=== PATIENT | male | born 1965 | race Caucasian/White ===

== ENCOUNTER 2019-02-01 17:06 | Inpatient (IN) ==
--- NOTE | 2019-02-01 17:28 | Emergency Department Note ---
Disposition Clinical Impression: Suicidal ideation, Alcohol intoxication, Alcohol abuse Disposition: Still a Patient Condition: Fair Referrals: NONE,PCP [Primary Care Provider] - Forms: ED Satisfaction Letter Time of Disposition: 18:45 General Adult HPI - General Chief complaint: ED Psychiatric Symptoms Stated complaint: SI Time Seen by Provider: 02/01/19 17:15 Source: patient Mode of arrival: ambulatory Limitations: no limitations Nursing Notes Reviewed: Yes Vital Signs Reviewed: Yes - History of Present Illness HPI Narrative: Patient is a 53-year-old male that presents the emergency department with reports of suicidal ideation. Patient states that this is been an issue for him in the past however today he felt acutely suicidal and, length of rope to hang himself however he is unable to go through with it. Patient states that she was recently admitted last week for psychiatric reasons to [facility]. Patient states that he has not been having his regular psychiatric medications due to them being stolen. Patient states that he is also having hallucinations that are telling him to harm himself. Patient states that he drank about a 12 pack this morning and used methamphetamine a couple of days ago. Patient states that he is not having any other symptoms at this time. Patient states that he follows with psychiatry at [facility]. Pain Scale: 10 - Related Data Home Medications Medication Instructions Recorded Confirmed Clonidine HCl 50 mg PO BID 02/01/19 02/01/19 Quetiapine Fumarate [Seroquel] 50 mg PO HS 02/01/19 02/01/19 traZODone [TraZODone] 100 mg PO HS 02/01/19 02/01/19 Allergies Allergy/AdvReac Type Severity Reaction Status Date / Time codeine Allergy Difficulty Verified 02/01/19 17:09 Breathing All systems ED: reviewed and negative except as stated. Constitutional: Denies: fever Cardiovascular: Denies: chest pain Respiratory: Denies: dyspnea Gastrointestinal: Denies: abdominal pain Psychiatric: Reports: anxiety, depression, suicidal thoughts, auditory hallucinations, visual hallucinations Past Medical History - Past Medical History Medical history: Reports: COPD, hepatitis Psychiatric history: Reports: bipolar - Social History Smoking Status: Current every day smoker Smokeless Tobacco Status: No Alcohol use: Reports: heavy Drug use: 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, IV Drug Use, prescription drug abuse Physical Exam - General Limitations: no limitations General appearance: alert, in no apparent distress - Head Head exam: atraumatic, normocephalic - Eye Eye exam: Present: normal appearance, EOMI - Neck Neck exam: Present: normal inspection, full ROM, trachea midline - Respiratory Respiratory exam: Present: normal lung sounds bilaterally. Absent: respiratory distress, wheezes - Cardiovascular Cardiovascular exam: Present: regular rate, normal rhythm, normal heart sounds, +S1, +S2 - Abdominal Exam Abdominal exam: Present: soft, Non-Tender, normal bowel sounds - Neurological Exam Neurological exam: Present: alert, oriented X3 - Psychiatric Psychiatric exam: Present: normal affect, normal mood - Skin Skin exam: Present: warm, dry, intact Course Vital Signs Temperature 97.8 F 02/01/19 17:09 Pulse Rate 68 02/01/19 17:09 Respiratory Rate 18 02/01/19 17:09 O2 Sat by Pulse Oximetry 96 02/01/19 17:09 Temperature 97.8 F 02/01/19 17:14 Pulse Rate 68 02/01/19 17:14 Respiratory Rate 18 02/01/19 17:14 Blood Pressure 166/100 02/01/19 17:14 O2 Sat by Pulse Oximetry 96 02/01/19 17:14 Oxygen Delivery Oxygen Delivery Room Air Medical Decision Making - MDM Narrative Medical decision making narrative: Due the patient presenting to the emergency department with ports is suicidal ideation we will obtain medical clearance labs and 1A will be contacted and the patient has been deemed medically cleared. Patient's urine drug screen was positive for amphetamines. Patient has elevated alcohol level of 147. A repeat ethanol level was ordered for 2130. Patient was signed out to Dr. Moreno. Please see his documentation for further medical decision making and final disposition. - Medical Records Medical records reviewed: Yes I reviewed the patient's medical records. - Lab Data Lab results reviewed: Yes I reviewed the patient's lab results. Result diagrams: 02/01/19 17:47 02/01/19 17:47 Lab Results 02/01/19 02/01/19 02/01/19 Range/Units 17:23 17:23 17:47 WBC 7.9 (4.3-11.1) K/mcL RBC 5.11 (4.19-5.50) M/mcL Hgb 14.9 (12.9-16.9) g/dL Hct 43.9 (37.5-50.1) % MCV 85.9 (83.0-100.0) fL MCH 29.2 (28.0-33.3) pg MCHC 33.9 (31.6-35.5) g/dL RDW 14.6 H (11.5-14.5) % Plt Count 172 (140-400) K/mcL MPV 8.6 L (9.4-12.4) fL Immature Gran % 0.3 (0-4) % Seg Neutrophils % 50.7 % Lymphocytes % 34.9 % Monocytes % 8.8 % Eosinophils % 4.8 % Basophils % 0.5 % Neutrophils # 4.0 (1.6-8.9) K/mcL Lymphocytes # 2.7 (0.6-4.6) K/mcL Monocytes # 0.7 (0.0-1.3) K/mcL Eosinophils # 0.4 (0.0-0.6) K/mcL Basophils # 0.0 (0.0-0.2) K/mcL Sodium (136-145) mEq/L Potassium (3.5-5.1) mEq/L Chloride (98-107) mEq/L Carbon Dioxide (23-29) mEq/L BUN (6-20) mg/dL Creatinine (0.70-1.30) mg/dL Est GFR ( Amer) (> 60) Est GFR (Non-Af Amer) (> 60) BUN/Creatinine Ratio (6-26) Glucose (70-105) mg/dL Calculated Osmolality (280-300) Calcium (8.6-10.3) mg/dL Urine Color Yellow (Yellow) Urine Clarity Clear (Clear) Urine pH 5.5 (5.0-8.0) pH Units Ur Specific [place] 1.010 (1.010-1.025) Urine Protein Negative (Neg-Trace) mg/dL Urine Glucose (UA) Normal (Normal) mg/dL Urine Ketones Negative (Negative) mg/dL Urine Blood Negative (Negative) Urine Nitrite Negative (Negative) Urine Bilirubin Negative (Negative) Urine Urobilinogen Normal (Normal) mg/dL Ur Leukocyte Esterase Negative (Negative) Salicylates (15.0-30.0) mg/dL Urine Opiates Screen Negative (Jtpiso=499) ng/mL Acetaminophen (10-20) mcg/mL Ur Barbiturates Screen Negative (Rhipco=516) ng/mL Ur Phencyclidine Scrn Negative (Cutoff=25) ng/mL Ur Amphetamines Screen Positive H (Nxhera=9208) ng/mL U Benzodiazepines Scrn Negative (Mkouwn=018) ng/mL Urine Cocaine Screen Negative (Cutoff= 300) ng/mL U Marijuana (THC) Screen Negative (Cutoff = 50) ng/mL Ur Drug Screen Interp See Below Ethyl Alcohol (Less than 10) mg/dL 02/01/19 Range/Units 17:47 WBC (4.3-11.1) K/mcL RBC (4.19-5.50) M/mcL Hgb (12.9-16.9) g/dL Hct (37.5-50.1) % MCV (83.0-100.0) fL MCH (28.0-33.3) pg MCHC (31.6-35.5) g/dL RDW (11.5-14.5) % Plt Count (140-400) K/mcL MPV (9.4-12.4) fL Immature Gran % (0-4) % Seg Neutrophils % % Lymphocytes % % Monocytes % % Eosinophils % % Basophils % % Neutrophils # (1.6-8.9) K/mcL Lymphocytes # (0.6-4.6) K/mcL Monocytes # (0.0-1.3) K/mcL Eosinophils # (0.0-0.6) K/mcL Basophils # (0.0-0.2) K/mcL Sodium 137 (136-145) mEq/L Potassium 3.3 L (3.5-5.1) mEq/L Chloride 107 (98-107) mEq/L Carbon Dioxide 21 L (23-29) mEq/L BUN 11 (6-20) mg/dL Creatinine 0.69 L (0.70-1.30) mg/dL Est GFR ( Amer) > 60 (> 60) Est GFR (Non-Af Amer) > 60 (> 60) BUN/Creatinine Ratio 16 (6-26) Glucose 94 (70-105) mg/dL Calculated Osmolality 283 (280-300) Calcium 9.0 (8.6-10.3) mg/dL Urine Color (Yellow) Urine Clarity (Clear) Urine pH (5.0-8.0) pH Units Ur Specific [place] (1.010-1.025) Urine Protein (Neg-Trace) mg/dL Urine Glucose (UA) (Normal) mg/dL Urine Ketones (Negative) mg/dL Urine Blood (Negative) Urine Nitrite (Negative) Urine Bilirubin (Negative) Urine Urobilinogen (Normal) mg/dL Ur Leukocyte Esterase (Negative) Salicylates < 2.5 L (15.0-30.0) mg/dL Urine Opiates Screen (Rvjhks=302) ng/mL Acetaminophen < 10 L (10-20) mcg/mL Ur Barbiturates Screen (Gqgkfs=794) ng/mL Ur Phencyclidine Scrn (Cutoff=25) ng/mL Ur Amphetamines Screen (Durcax=7290) ng/mL U Benzodiazepines Scrn (Tbynut=854) ng/mL Urine Cocaine Screen (Cutoff= 300) ng/mL U Marijuana (THC) Screen (Cutoff = 50) ng/mL Ur Drug Screen Interp Ethyl Alcohol 147 H (Less than 10) mg/dL Attestation Statement - Attestation Attestation: Resident Attestation: I examined this patient and my medical decision making was reviewed with the Resident Physician. I agree with the documented findings, disposition and treatment plan as described except to the extent set forth below. We independently had [id number] contact with the patient. Patient presenting for evaluation of suicidal ideation. Patient with a history of alcoholism as well as meth use. Patient was recently discharged from psychiatric facility. Patient has been home. Most recent meth use for several days ago. Worsening thoughts of depression and SI. Patient cut her rope to hang himself but could not officially go through with it. Patient is visibly upset crying in the room. Patient is not having increased worker breathing, abdomen soft nontender to palpation. Patient will require further evaluation with blood work as well as psychiatric consult. Patient's blood work shows elevated alcohol level. Alcohol will need to be redrawn prior to psychiatric evaluation. Hepatic and lipase pending. Patient has been signed out to Dr. Moreno for further evaluation and disposition.
[2019-02-01 18:11] LABS: Basophils % 0.5 %; Eosinophils # 0.4 K/mcL (0.0-0.6); Eosinophils % 4.8 %; Hematocrit 43.9 % (37.5-50.1); Hemoglobin 14.9 g/dL (12.9-16.9); Immature Granulocytes % 0.3 % (0-4); Lymphocytes # 2.7 K/mcL (0.6-4.6); Lymphocytes % 34.9 %; Mean Corpuscular HGB Conc 33.9 g/dL (31.6-35.5); Mean Corpuscular Hemoglobin 29.2 pg (28.0-33.3); Mean Corpuscular Volume 85.9 fL (83.0-100.0); Mean Platelet Volume 8.6 fL (9.4-12.4); Monocytes # 0.7 K/mcL (0.0-1.3); Monocytes % 8.8 %; Platelet Count 172 K/mcL (140-400); Red Blood Count 5.11 M/mcL (4.19-5.50); Red Cell Distribution Width 14.6 % (11.5-14.5); Segmented Neutrophils % 50.7 %; White Blood Count 7.9 K/mcL (4.3-11.1)
[2019-02-01 18:12] LABS: Amphetamine Screen,Urine Positive ng/mL (Cutoff=1000); Barbiturate Screen,Urine Negative ng/mL (Cutoff=200); Benzodiazepines Screen,Urine Negative ng/mL (Cutoff=200); Cannabinoid Screen,Urine Negative ng/mL (Cutoff = 50); Cocaine Screen,Urine Negative ng/mL (Cutoff= 300); Opiate Screen,Urine Negative ng/mL (Cutoff=300); Phencyclidine Screen,Urine Negative ng/mL (Cutoff=25)
[2019-02-01 18:21] LABS: Bilirubin,Urine Negative (Negative); Blood,Urine Negative (Negative); Clarity,Urine Clear (Clear); Color,Urine Yellow (Yellow); Glucose,Urine (UA) Normal (Normal); Ketones,Urine Negative (Negative); Leukocyte Esterase,Urine Negative (Negative); Nitrite,Urine Negative (Negative); PH,Urine 5.5 pH Units (5.0-8.0); Protein,Urine Negative (Neg-Trace); Urobilinogen,Urine Normal (Normal)
[2019-02-01 18:26] LABS: Acetaminophen < 10 mcg/mL (10-20); BUN/Creatinine Ratio 16 (6-26); Blood Urea Nitrogen 11 mg/dL (6-20); Carbon Dioxide 21 mEq/L (23-29); Chloride 107 mEq/L (98-107); Ethanol 147 mg/dL (Less than 10); Glucose 94 mg/dL (70-105); Osmolality,Calculated 283 (280-300); Potassium 3.3 mEq/L (3.5-5.1); Salicylate < 2.5 mg/dL (15.0-30.0); Sodium 137 mEq/L (136-145); eGFR For African Americans > 60 (> 60); eGFR For Non-African Americans > 60 (> 60)
[2019-02-01] MEDS ORDERED: *HR* LORazepam 1 MG TABLET PO ONE (18:29)
--- NOTE | 2019-02-01 18:43 | Emergency Department Note ---
Disposition Clinical Impression: Suicidal ideation, Alcohol abuse Alcohol intoxication Qualifiers: Complication of substance-induced condition: with unspecified complication Qualified Code(s): F10.929 - Alcohol use, unspecified with intoxication, unspecified Disposition: Admitted As Inpatient Condition: Fair Referrals: NONE,PCP [Primary Care Provider] - Forms: ED Satisfaction Letter Time of Disposition: 18:59 General Adult HPI - General Chief complaint: ED Psychiatric Symptoms Stated complaint: SI Time Seen by Provider: 02/01/19 17:15 Source: patient Mode of arrival: ambulatory Limitations: no limitations - History of Present Illness Pain Scale: 10 - Related Data Home Medications Medication Instructions Recorded Confirmed Clonidine HCl 50 mg PO BID 02/01/19 02/01/19 Quetiapine Fumarate [Seroquel] 50 mg PO HS 02/01/19 02/01/19 traZODone [TraZODone] 100 mg PO HS 02/01/19 02/01/19 Allergies Allergy/AdvReac Type Severity Reaction Status Date / Time codeine Allergy Difficulty Verified 02/01/19 17:09 Breathing Constitutional: Denies: fever Cardiovascular: Denies: chest pain Respiratory: Denies: dyspnea Gastrointestinal: Denies: abdominal pain Psychiatric: Reports: anxiety, depression, suicidal thoughts, auditory hallucinations, visual hallucinations Past Medical History - Past Medical History Medical history: Reports: COPD, hepatitis Psychiatric history: Reports: bipolar - Social History Smoking Status: Current every day smoker Smokeless Tobacco Status: No Alcohol use: Reports: heavy Drug use: 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, IV Drug Use, prescription drug abuse Physical Exam - General Limitations: no limitations General appearance: alert, in no apparent distress Course Vital Signs Temperature 97.8 F 02/01/19 17:09 Pulse Rate 68 02/01/19 17:09 Respiratory Rate 18 02/01/19 17:09 O2 Sat by Pulse Oximetry 96 02/01/19 17:09 Temperature 97.8 F 02/01/19 17:14 Pulse Rate 68 02/01/19 17:14 Respiratory Rate 18 02/01/19 17:14 Blood Pressure 166/100 02/01/19 17:14 O2 Sat by Pulse Oximetry 96 02/01/19 17:14 Oxygen Delivery Oxygen Delivery Room Air Medical Decision Making - Lab Data Result diagrams: 02/01/19 17:47 02/01/19 17:47 Lab Results 02/01/19 02/01/19 02/01/19 Range/Units 17:23 17:23 17:47 WBC 7.9 (4.3-11.1) K/mcL RBC 5.11 (4.19-5.50) M/mcL Hgb 14.9 (12.9-16.9) g/dL Hct 43.9 (37.5-50.1) % MCV 85.9 (83.0-100.0) fL MCH 29.2 (28.0-33.3) pg MCHC 33.9 (31.6-35.5) g/dL RDW 14.6 H (11.5-14.5) % Plt Count 172 (140-400) K/mcL MPV 8.6 L (9.4-12.4) fL Immature Gran % 0.3 (0-4) % Seg Neutrophils % 50.7 % Lymphocytes % 34.9 % Monocytes % 8.8 % Eosinophils % 4.8 % Basophils % 0.5 % Neutrophils # 4.0 (1.6-8.9) K/mcL Lymphocytes # 2.7 (0.6-4.6) K/mcL Monocytes # 0.7 (0.0-1.3) K/mcL Eosinophils # 0.4 (0.0-0.6) K/mcL Basophils # 0.0 (0.0-0.2) K/mcL Sodium (136-145) mEq/L Potassium (3.5-5.1) mEq/L Chloride (98-107) mEq/L Carbon Dioxide (23-29) mEq/L BUN (6-20) mg/dL Creatinine (0.70-1.30) mg/dL Est GFR ( Amer) (> 60) Est GFR (Non-Af Amer) (> 60) BUN/Creatinine Ratio (6-26) Glucose (70-105) mg/dL Calculated Osmolality (280-300) Calcium (8.6-10.3) mg/dL Urine Color Yellow (Yellow) Urine Clarity Clear (Clear) Urine pH 5.5 (5.0-8.0) pH Units Ur Specific [place] 1.010 (1.010-1.025) Urine Protein Negative (Neg-Trace) mg/dL Urine Glucose (UA) Normal (Normal) mg/dL Urine Ketones Negative (Negative) mg/dL Urine Blood Negative (Negative) Urine Nitrite Negative (Negative) Urine Bilirubin Negative (Negative) Urine Urobilinogen Normal (Normal) mg/dL Ur Leukocyte Esterase Negative (Negative) Salicylates (15.0-30.0) mg/dL Urine Opiates Screen Negative (Sycsdd=870) ng/mL Acetaminophen (10-20) mcg/mL Ur Barbiturates Screen Negative (Ksbsji=727) ng/mL Ur Phencyclidine Scrn Negative (Cutoff=25) ng/mL Ur Amphetamines Screen Positive H (Rtkwbd=6715) ng/mL U Benzodiazepines Scrn Negative (Ezhjrq=767) ng/mL Urine Cocaine Screen Negative (Cutoff= 300) ng/mL U Marijuana (THC) Screen Negative (Cutoff = 50) ng/mL Ur Drug Screen Interp See Below Ethyl Alcohol (Less than 10) mg/dL 02/01/19 Range/Units 17:47 WBC (4.3-11.1) K/mcL RBC (4.19-5.50) M/mcL Hgb (12.9-16.9) g/dL Hct (37.5-50.1) % MCV (83.0-100.0) fL MCH (28.0-33.3) pg MCHC (31.6-35.5) g/dL RDW (11.5-14.5) % Plt Count (140-400) K/mcL MPV (9.4-12.4) fL Immature Gran % (0-4) % Seg Neutrophils % % Lymphocytes % % Monocytes % % Eosinophils % % Basophils % % Neutrophils # (1.6-8.9) K/mcL Lymphocytes # (0.6-4.6) K/mcL Monocytes # (0.0-1.3) K/mcL Eosinophils # (0.0-0.6) K/mcL Basophils # (0.0-0.2) K/mcL Sodium 137 (136-145) mEq/L Potassium 3.3 L (3.5-5.1) mEq/L Chloride 107 (98-107) mEq/L Carbon Dioxide 21 L (23-29) mEq/L BUN 11 (6-20) mg/dL Creatinine 0.69 L (0.70-1.30) mg/dL Est GFR ( Amer) > 60 (> 60) Est GFR (Non-Af Amer) > 60 (> 60) BUN/Creatinine Ratio 16 (6-26) Glucose 94 (70-105) mg/dL Calculated Osmolality 283 (280-300) Calcium 9.0 (8.6-10.3) mg/dL Urine Color (Yellow) Urine Clarity (Clear) Urine pH (5.0-8.0) pH Units Ur Specific [place] (1.010-1.025) Urine Protein (Neg-Trace) mg/dL Urine Glucose (UA) (Normal) mg/dL Urine Ketones (Negative) mg/dL Urine Blood (Negative) Urine Nitrite (Negative) Urine Bilirubin (Negative) Urine Urobilinogen (Normal) mg/dL Ur Leukocyte Esterase (Negative) Salicylates < 2.5 L (15.0-30.0) mg/dL Urine Opiates Screen (Vxpobq=790) ng/mL Acetaminophen < 10 L (10-20) mcg/mL Ur Barbiturates Screen (Pcasvx=647) ng/mL Ur Phencyclidine Scrn (Cutoff=25) ng/mL Ur Amphetamines Screen (Wwuypc=8976) ng/mL U Benzodiazepines Scrn (Tbepah=317) ng/mL Urine Cocaine Screen (Cutoff= 300) ng/mL U Marijuana (THC) Screen (Cutoff = 50) ng/mL Ur Drug Screen Interp Ethyl Alcohol 147 H (Less than 10) mg/dL Attestation Statement - Attestation Attestation: Care of patient assumed from Dr. Diop at 18:43 pending repeat alcohol level and planned mental health evaluation. Patient presents intoxicated after drinking alcohol and using methamphetamine with increased suicidality Patient tearful talking on the cell phone at the time of exam. He reports to me that he drinks approximately one case of beer daily for the past 30 years Concern for impending ETOH withdrawal given the chronicity of his alcohol use. Will request admission to the medicine service for CIWA protocol.
[2019-02-01 19:16] LABS: Alanine Aminotransferase 21 Units/L (7-52); Albumin 4.2 g/dL (3.5-5.7); Albumin/Globulin Ratio 1.6 (1.1-2.2); Alkaline Phosphatase 106 Units/L (34-104); Aspartate Amino Transferase 36 Units/L (13-39); Bilirubin,Direct 0.1 mg/dL (0.0-0.2); Bilirubin,Indirect 0.3 mg/dL (0.0-1.2); Bilirubin,Total 0.4 mg/dL (0.3-1.0); Globulin 2.6 g/dL (2.4-3.5); Lipase 29 Units/L (11-82); Total Protein 6.8 g/dL (6.4-8.9)
[2019-02-01] MEDS ORDERED: *HR* LORazepam 2 MG/ML VIAL IVP PRN (19:54)
[2019-02-01] MEDS ORDERED: Potassium Chloride Elixir 20 MEQ/15 ML UDC PO ONE (20:04)
[2019-02-01 20:12] LABS: Magnesium 2.1 mg/dL (1.6-2.6)
--- NOTE | 2019-02-01 20:14 | Internal Med History&Physical ---
Date of Encounter: 02/01/19 Time of Encounter: 20:13 Internal Medicine - H&P: HPI Chief complaint: SI Admitted From: Home Plans for Post Hospital Care: Home History of present illness: Nasim Quinones is a 53 year old man with hypertension, depression, alcohol dependence and substance use disorder who has had psychiatric issues in the past presenting with suicidal ideation. While he admits to having had this issue in the past requiring admission, he says it occurred acutely today after an episode of drinking and reportedly obtaining a length of rope to hang himself with. He admits to daily alcohol use, last rink at 11am this morning. He also admits to using crystal meth. He is hearing voices telling him to harm himself and feels scared. He denies other complaints. He was evaluated in the ER and although h emodynamically stable was seen to have an elevated alcohol level and amphetamines in urine therefore was not cleared medically giving the intoxicated state and risk of withdrawal to occur in the psych unit. He will be admitted for observation. He says he is from [place] and he does not know how he came here. Vitals: Reviewed General: Well-developed white man, tearful and scared looking. Skin: Flushed, warm and dry. HEENT: Moist mucous membranes. No conjunctivae pallor. Neck: No lymphadenopathy. No JVD. No carotid bruits. No palpable thyroid. Chest: Normal thoracic expansion. Normal breath sounds. Clear to auscultation. Heart: Normal S1 & S2; rhythmic. No rubs or murmurs. Abdomen: Non-distended, soft and non-tender to palpation. No peritoneal reaction. Extremities: No clubbing, cyanosis or edema. No calf tenderness. Normal distal pulses. Neurological: Awake, alert and oriented to person, place and time. No focal deficits. Psych: Affect appropriate. Assessment/Plan 1. Alcohol intoxication: Will place on CIWA protocol, lorazepam as needed, monitor electrolytes, supplement minerals/vitamins. 2. Substance use disorder: 5 minutes were spent counseling and educating the patient on this habit. pharmacy services director and resources were made available. 3. Suicidal ideation: Sitter in place. Will have psych consultation. 4. Hypertension: Will start clonidine 0.1mg BID as the drug is in his home med list but unclear dose. 5. Hepatitis C: Self-reported. No clinical evidence of liver failure and transaminases within normal limits. Can be followed as an outpatient and treatment offered. Past Med Surg Social Fam HX - Past Medical History Medical history: COPD, hepatitis Additional medical history: Hep C Psychiatric history: bipolar - Past Surgical History Additional surgical history: R tibia/fibula repair - Social History Smoking Status: Current every day smoker Smokeless Tobacco Status: No Alcohol use: heavy Drug use: methamphetamine, IV Drug Use, prescription drug abuse Internal Medicine - H&P: Meds Clonidine HCl 50 mg PO BID 02/01/19 [History] Quetiapine Fumarate [Seroquel] 50 mg PO HS 02/01/19 [History] traZODone [TraZODone] 100 mg PO HS 02/01/19 [History] Allergy/AdvReac Type Severity Reaction Status Date / Time codeine Allergy Difficulty Verified 02/01/19 17:09 Breathing All Systems PM: A 10-system review of systems was performed and is negative for pertinent findings except as documented above in the HPI. Family history of CAD in mother. - Constitutional Vitals: Temp Pulse Resp BP Pulse Ox 97.8 F 68 18 166/100 96 02/01/19 17:14 02/01/19 17:14 02/01/19 17:14 02/01/19 17:14 02/01/19 17:14 Exam: . Internal Med - H&P Results - Labs CBC & Chem 7: 02/01/19 17:47 02/01/19 17:47 Labs: Short CBC 02/01/19 Range/Units 17:47 WBC 7.9 (4.3-11.1) K/mcL Hgb 14.9 (12.9-16.9) g/dL Hct 43.9 (37.5-50.1) % Plt Count 172 (140-400) K/mcL Neutrophils # 4.0 (1.6-8.9) K/mcL BMP 02/01/19 17:47 Sodium 137 Potassium 3.3 L Chloride 107 Carbon Dioxide 21 L BUN 11 Creatinine 0.69 L Glucose 94 Calcium 9.0 Liver Function 02/01/19 Range/Units 17:47 Total Bilirubin 0.4 (0.3-1.0) mg/dL Direct Bilirubin 0.1 (0.0-0.2) mg/dL AST 36 (13-39) Units/L ALT 21 (7-52) Units/L Alkaline Phosphatase 106 H (34-104) Units/L Albumin 4.2 (3.5-5.7) g/dL Urine 02/01/19 Range/Units 17:23 Urine Color Yellow (Yellow) Urine Clarity Clear (Clear) Urine pH 5.5 (5.0-8.0) pH Units Ur Specific [place] 1.010 (1.010-1.025) Urine Protein Negative (Neg-Trace) mg/dL Urine Glucose (UA) Normal (Normal) mg/dL - Time Spent With Patient Total time spent is greater than 50% in coordination of care (as documented) at patient's floor/unit and/or counseling patient: Greater than 35 minutes
[2019-02-01] MEDS ORDERED: CLONIDINE HCL PO SCH (21:00)
[2019-02-01] MEDS: cloNIDine HCl 0.1 MG TABLET PO SCH (21:52)
[2019-02-01] MEDS: traZODone 50 MG TABLET PO SCH (21:52)
[2019-02-01] MEDS: *HR* LORazepam 2 MG/ML VIAL IVP PRN (23:19)
[2019-02-01] MEDS: Ringers Solution, Lactated 1,000 ML IVC SCH (23:35)
[2019-02-02] MEDS: *HR* LORazepam 2 MG/ML VIAL IVP PRN ×4 (04:45→20:58)
[2019-02-02] MEDS: *HR* Heparin 5,000 UNIT/ML VIAL SQ SCH ×2 (05:40→18:29)
[2019-02-02 07:33] LABS: Prothrombin Time 11.1 Seconds (9.4-12.1)
[2019-02-02 07:36] LABS: Activated Partial Thrombo Time 27.9 Seconds (26.0-36.0)
[2019-02-02 07:55] LABS: Ethanol < 10 mg/dL (Less than 10); Potassium 3.6 mEq/L (3.5-5.1)
[2019-02-02] MEDS: Folic Acid 1 MG TABLET PO SCH (08:09)
[2019-02-02] MEDS: cloNIDine HCl 0.1 MG TABLET PO SCH ×2 (08:09→20:33)
[2019-02-02] MEDS: Vitamin B Complex/Vit C/Vit E 1 EACH TABLET PO SCH (08:09)
[2019-02-02] MEDS: Ringers Solution, Lactated 1,000 ML IVC SCH (08:09)
[2019-02-02] MEDS: Thiamine (B-1) 100 MG TABLET PO SCH (08:09)
--- NOTE | 2019-02-02 10:48 | Internal Med Progress Note ---
Hospitalist Progress Note - Encounter Date of Encounter: 02/02/19 Time of Encounter: 10:48 - Subjective Interval History: She was seen and examined at bedside currently he is on one-to-one suicide observation. Patient is tearful throughout conversation states he feels he failed his family and his friends. He is currently homeless and has been drinking and using methamphetamines. He states that "I am tired of living like this" and has been having thoughts of hanging himself. He states that his last drink was a day ago and last used methamphetamines a day and a half ago. Advised patient that he will be monitored for withdrawal and will be evaluated by psychiatry. - Exam Vitals: Temp Pulse Resp BP Pulse Ox 98.2 F 76 16 151/92 99 02/02/19 07:56 02/02/19 07:56 02/02/19 07:56 02/02/19 07:56 02/02/19 07:56 Exam: Gen. well-developed appears tearful and frightened Skin: Free of rash and discoloration. Eyes: Sclera is white. There is no discharge from eyes. ENMT: Oral/pharyngeal mucosa is normal in appearance. There is no discharge from nose or ears. Respiratory: Normal breath sounds with no crackles and wheezes bilaterally. CV: Heart is regular with no gallop or murmur. GI: Abdomen is flat and soft with no palpable mass or visceromegaly. : There is no tenderness in patient's flanks bilaterally. Neuro exam: He has good strength in upper and lower extremities. He has normal eye movements. Psychiatric: He has normal affect. His thought process is appropriate to the situation. - Assessment and Plan (1) Suicidal ideation Current Visit: Yes Status: Acute Assessment and Plan: Past past psychiatric history he is homeless and has been abusing alcohol and drugs and experiencing suicidal ideations reporting that he wants to hang himself with a rope. He drinks alcohol daily and his last drink was 11 AM yesterday he also does crystal meth which she states was approximately day and a half ago. He states that he feels scared and at times he does hear voices telling him to harm himself. Continue with suicide observation 1:1 Patient will be evaluated by psychiatry-psychiatry consult and appreciate recommendations Social service consult for discharge planning (2) Substance abuse Current Visit: Yes Status: Acute Assessment and Plan: Patient states he have a history of opioid abuse and has been using crystal meth last used proximally a day and a half ago (3) Hepatitis C Current Visit: No Status: Chronic Assessment and Plan: Per patient history hepatic panel is stable - Time Spent with Patient Total time spent is greater than 50% in coordination of care (as documented) at patient's floor/unit and/or counseling patient: Internal Medicine: Result - Labs CBC & Chem 7: 02/01/19 17:47 02/02/19 06:28 Labs: Short CBC 02/01/19 Range/Units 17:47 WBC 7.9 (4.3-11.1) K/mcL Hgb 14.9 (12.9-16.9) g/dL Hct 43.9 (37.5-50.1) % Plt Count 172 (140-400) K/mcL Neutrophils # 4.0 (1.6-8.9) K/mcL BMP 02/01/19 02/02/19 17:47 06:28 Sodium 137 Potassium 3.3 L 3.6 Chloride 107 Carbon Dioxide 21 L BUN 11 Creatinine 0.69 L Glucose 94 Calcium 9.0 Liver Function 02/01/19 Range/Units 17:47 Total Bilirubin 0.4 (0.3-1.0) mg/dL Direct Bilirubin 0.1 (0.0-0.2) mg/dL AST 36 (13-39) Units/L ALT 21 (7-52) Units/L Alkaline Phosphatase 106 H (34-104) Units/L Albumin 4.2 (3.5-5.7) g/dL Urine 02/01/19 Range/Units 17:23 Urine Color Yellow (Yellow) Urine Clarity Clear (Clear) Urine pH 5.5 (5.0-8.0) pH Units Ur Specific [place] 1.010 (1.010-1.025) Urine Protein Negative (Neg-Trace) mg/dL Urine Glucose (UA) Normal (Normal) mg/dL - ABG Interpretation ABG results: PT/INR, D-dimer PT 11.1 Seconds (9.4-12.1) 02/02/19 06:28 Consult Discharge Plan - Plan Referrals: NONE,PCP [Primary Care Provider] - (3) Hepatitis C Qualifiers: Viral hepatitis chronicity: unspecified Hepatic coma status: without hepatic coma Qualified Code(s): B19.20 - Unspecified viral hepatitis C without hepatic coma
[2019-02-02] MEDS: *HR* Promethazine 25 MG/ML VIAL IVP PRN (12:44)
[2019-02-02] MEDS: traZODone 50 MG TABLET PO SCH (20:33)
[2019-02-03] MEDS: *HR* Heparin 5,000 UNIT/ML VIAL SQ SCH ×2 (06:13→16:07)
[2019-02-03] MEDS: *HR* LORazepam 2 MG/ML VIAL IVP PRN ×4 (06:56→20:51)
[2019-02-03] MEDS: cloNIDine HCl 0.1 MG TABLET PO SCH ×2 (08:19→21:55)
[2019-02-03] MEDS: Folic Acid 1 MG TABLET PO SCH (08:19)
[2019-02-03] MEDS: Thiamine (B-1) 100 MG TABLET PO SCH (08:19)
[2019-02-03] MEDS: Vitamin B Complex/Vit C/Vit E 1 EACH TABLET PO SCH (08:19)
[2019-02-03 09:14] LABS: BUN/Creatinine Ratio 14 (6-26); Blood Urea Nitrogen 10 mg/dL (6-20); Carbon Dioxide 26 mEq/L (23-29); Chloride 104 mEq/L (98-107); Glucose 100 mg/dL (70-105); Osmolality,Calculated 285 (280-300); Sodium 138 mEq/L (136-145); eGFR For African Americans > 60 (> 60); eGFR For Non-African Americans > 60 (> 60)
[2019-02-03] MEDS: *HR* Promethazine 25 MG/ML VIAL IVP PRN ×2 (10:13→15:40)
--- NOTE | 2019-02-03 11:31 | Consult Note ---
Date of Encounter: 02/03/19 Time of Encounter: 11:20 Assessment & Recommendation (1) Alcohol abuse Current visit: Yes Status: Acute Assessment & Recommendation: Patient is very interested in getting into a long-term alcohol treatment program. He feels this is the root of both his mental health problems and interpersonal problems. I would recommend the [facility] for him. We will send the intake packet to 3B. This time he is michael for safety and denying suicidal or homicidal thoughts ideations or plans and without the potential for drinking in the hospital to increase impulsivity the sitter could be discontinued. Psychiatry will sign off unless there are further questions. History of Present Illness Patient: new to practice Requesting Physician: Herminio Hill MD Reason for consult: SI History of present illness: Mr. Quinones is a 53 year old male with hypertension, depression, alcohol dependence and substance use disorder who has had psychiatric issues in the past presenting with suicidal ideation. While he admits to having had this issue in the past requiring admission, he says it occurred acutely today after an episode of drinking and reportedly obtaining a length of rope to hang himself with. He admits to daily alcohol use, last drink at 11am yesterday morning. He also admits to using crystal meth. He was hearing voices telling him to harm himself and feels scared. He denies other complaints. He was evaluated in the ER and although hemodynamically stable was seen to have an elevated alcohol level and amphetamines in urine therefore was not cleared medically giving the intoxicated state and risk of withdrawal to occur in the psych unit. He will be admitted for observation. He says he is from [place] and he does not know how he came here. Psychiatry was consult and related to the suicidal ideations. When I went to see him this morning he stated he was no longer having suicidal thoughts, ideations, or plans. He said that the thoughts he had before in the context of his intoxication. He also denied hearing auditory hallucinations except when he was intoxicated. Port some chronic depression with sad mood, decreased interest, feelings of guilt and worthlessness, and lack of energy. He denies current or past manic symptoms such as elevated irritable mood, grandiosity, decreased need for sleep, racing thoughts, or pressured speech. He states that he feels his main problem is his alcohol use and this has driven away most of his family. He believes his depression is likely secondary to this. He is interested in getting into an alcohol treatment program. He was able to currently contract for safety. CC: Herminio Hill MD Past Med Surg Social Fam HX - Past Medical History Medical history: COPD, hepatitis - Past Psychiatric History Psychiatric history: Reports: depression, prior suicide attempt, previous psychiatric hospitalization Past psychiatric history details: He reports that he has been psychiatrically hospitalized in the past. He reports a history of suicide attempt by overdose. He is currently linked with [employer] ([place]). He is receiving Seroquel at night Family psychiatric history: No Family History of Suicide: None - Social History Smoking Status: Current every day smoker Packs per day: 1 Smokeless Tobacco Status: No Alcohol use: heavy Drug use: methamphetamine, IV Drug Use, prescription drug abuse Occupational status: unemployed Current living situation: Homeless Activity Level: Independent ambulation Recent Out of Country Travel Within the Last 8 Weeks: No Exposure or Possible Exposure to Illness During Travel: No - Family History Mother Living Status: Age at : 66 Cause of : CA Hx Family Cardiac Disorders: Yes ([place]pass) Hx Family Respiratory Disorders: No Hx Family Cancer: Yes (Breast) Hx Family GI Disorders: No Hx Family Genitourinary Disorders: Yes (Kidney transplantx2) Hx Family Endocrine Disorder: No Hx Family Musculoskeletal Disorders: No Hx Family Neuromuscular Disorders: No Hx Family Neurologic Disorders: No Hx Family HEENT Disorders: No Hx Family Autoimmune Disorders: No Hx Family Reproductive Disorders: No Hx Family Psychosocial Disorders: No Hx Family Medical Disorders: No Father Living Status: Still Living Hx Family Cardiac Disorders: Yes (Bypass surgery) Hx Family Respiratory Disorders: No Hx Family Cancer: No Hx Family GI Disorders: No Hx Family Genitourinary Disorders: No Hx Family Endocrine Disorder: No Hx Family Musculoskeletal Disorders: No Hx Family Neuromuscular Disorders: No Hx Family Neurologic Disorders: No Hx Family HEENT Disorders: No Hx Family Autoimmune Disorders: No Hx Family Reproductive Disorders: No Hx Family Psychosocial Disorders: No Hx Family Medical Disorders: No Medications & Allergies Quetiapine Fumarate [Seroquel] 50 mg PO HS 02/01/19 [History] HYDROcodone/Acet 5/325 mg [[place] 5-325 mg] 1 tab PO Q6H PRN 02/02/19 [History] Trazodone HCl 100 mg PO HS 02/02/19 [History] Venlafaxine HCl [Venlafaxine HCl ER] 75 mg PO QAM 02/02/19 [History] clonazePAM [Clonazepam] 1 mg PO TID PRN 02/02/19 [History] hydrOXYzine pamoate [HydrOXYzine Pamoate] 50 mg PO TID PRN 02/02/19 [History] Allergy/AdvReac Type Severity Reaction Status Date / Time codeine Allergy Difficulty Verified 02/02/19 19:27 Breathing Review of Systems Constitutional: Reports: weakness Eyes: Denies: eye pain Ears, Nose, Throat: Denies: ear pain Cardiovascular: Denies: chest pain Respiratory: Denies: cough Gastrointestinal: Denies: abdominal pain Genitourinary male: Denies: urgency Musculoskeletal: Reports: joint pain Integumentary: Denies: rash Neurological: Reports: weakness Psychiatric: Reports: depression. Denies: suicidal ideation, homicidal ideation, auditory hallucinations, visual hallucinations Endocrine: Reports: fatigue Hematologic/Lymphatic: Denies: easy bleeding Allergic/Immunologic: Denies: facial swelling Psychiatry Exam - Constitutional Vitals: Temp Pulse Resp BP Pulse Ox 97.7 F 61 18 152/89 96 02/03/19 10:19 02/03/19 10:19 02/03/19 10:19 02/03/19 10:19 02/03/19 10:19 General appearance: disheveled - Musculoskeletal Gait: other (Laying in bed watching TV) Station: relaxed Strength & Tone: normal for patient - Psychiatric Patient Orientation: Yes Person, Yes Time, Yes Place, Yes Circumstance Level of alertness: Alert Behavior: calm Psychomotor activity: Normal Eye Contact: Maintains Eye Contact Mood Description: Depressed Patient description of mood: A little down Affect description: congruent with mood Speech Volume: Normal Speech pattern: normal rate Language & Vocabulary: consistent with education Thought Process: Intact Thought Content: No Suicidal ideation, No Homicidal ideation, No Overt delusions Perceptual Disturbances: No Auditory hallucinations, No Visual hallucinations Attention Span Ability: Capable of Focused Attention Memory Description: Grossly Intact Patient Reliability: Reliable Historian Fund of knowledge: Yes abstraction ability, Yes aware of current events Intelligence Estimate: Average Judgment: Fair Insight: Partial Results - Drug Levels and Toxicology Drug Levels and Toxicology: Drug Levels and Toxicity 02/02/19 11:39 Ethyl Alcohol < 10 - Labs Labs: Laboratory Last Values WBC 7.9 K/mcL (4.3-11.1) 02/01/19 17:47 RBC 5.11 M/mcL (4.19-5.50) 02/01/19 17:47 Hgb 14.9 g/dL (12.9-16.9) 02/01/19 17:47 Hct 43.9 % (37.5-50.1) 02/01/19 17:47 MCV 85.9 fL (83.0-100.0) 02/01/19 17:47 MCH 29.2 pg (28.0-33.3) 02/01/19 17:47 MCHC 33.9 g/dL (31.6-35.5) 02/01/19 17:47 RDW 14.6 % (11.5-14.5) H 02/01/19 17:47 Plt Count 172 K/mcL (140-400) 02/01/19 17:47 MPV 8.6 fL (9.4-12.4) L 02/01/19 17:47 Immature Gran % 0.3 % (0-4) 02/01/19 17:47 Seg Neutrophils % 50.7 % 02/01/19 17:47 34.9 % 02/01/19 17:47 8.8 % 02/01/19 17:47 4.8 % 02/01/19 17:47 0.5 % 02/01/19 17:47 4.0 K/mcL (1.6-8.9) 02/01/19 17:47 2.7 K/mcL (0.6-4.6) 02/01/19 17:47 0.7 K/mcL (0.0-1.3) 02/01/19 17:47 0.4 K/mcL (0.0-0.6) 02/01/19 17:47 0.0 K/mcL (0.0-0.2) 02/01/19 17:47 PT 11.1 Seconds (9.4-12.1) 02/02/19 06:28 INR 1.0 02/02/19 06:28 APTT 27.9 Seconds (26.0-36.0) 02/02/19 06:28 Sodium 138 mEq/L (136-145) 02/03/19 07:56 Potassium 4.0 mEq/L (3.5-5.1) 02/03/19 07:56 Chloride 104 mEq/L (98-107) 02/03/19 07:56 Carbon Dioxide 26 mEq/L (23-29) 02/03/19 07:56 BUN 10 mg/dL (6-20) 02/03/19 07:56 0.72 mg/dL (0.70-1.30) 02/03/19 07:56 Est GFR ( Amer) > 60 (> 60) 02/03/19 07:56 Est GFR (Non-Af Amer) > 60 (> 60) 02/03/19 07:56 14 (6-26) 02/03/19 07:56 Glucose 100 mg/dL (70-105) 02/03/19 07:56 POC Glucose 100 mg/dL (70-99) H 02/02/19 03:00 285 (280-300) 02/03/19 07:56 Calcium 9.0 mg/dL (8.6-10.3) 02/03/19 07:56 Magnesium 2.1 mg/dL (1.6-2.6) 02/01/19 17:47 0.4 mg/dL (0.3-1.0) 02/01/19 17:47 0.1 mg/dL (0.0-0.2) 02/01/19 17:47 0.3 mg/dL (0.0-1.2) 02/01/19 17:47 AST 36 Units/L (13-39) 02/01/19 17:47 ALT 21 Units/L (7-52) 02/01/19 17:47 106 Units/L (34-104) H 02/01/19 17:47 6.8 g/dL (6.4-8.9) 02/01/19 17:47 4.2 g/dL (3.5-5.7) 02/01/19 17:47 2.6 g/dL (2.4-3.5) 02/01/19 17:47 1.6 (1.1-2.2) 02/01/19 17:47 29 Units/L (11-82) 02/01/19 17:47 Yellow (Yellow) 02/01/19 17:23 Clear (Clear) 02/01/19 17:23 5.5 pH Units (5.0-8.0) 02/01/19 17:23 Ur Specific [place] 1.010 (1.010-1.025) 02/01/19 17:23 Negative mg/dL (Neg-Trace) 02/01/19 17:23 Normal mg/dL (Normal) 02/01/19 17:23 Negative mg/dL (Negative) 02/01/19 17:23 Negative (Negative) 02/01/19 17:23 Negative (Negative) 02/01/19 17:23 Negative (Negative) 02/01/19 17:23 Normal mg/dL (Normal) 02/01/19 17:23 Ur Leukocyte Esterase Negative (Negative) 02/01/19 17:23 Salicylates < 2.5 mg/dL (15.0-30.0) L 02/01/19 17:47 Negative ng/mL (Dyceoi=459) 02/01/19 17:23 Acetaminophen < 10 mcg/mL (10-20) L 02/01/19 17:47 Ur Barbiturates Screen Negative ng/mL (Aurvbw=972) 02/01/19 17:23 Ur Phencyclidine Scrn Negative ng/mL (Cutoff=25) 02/01/19 17:23 Ur Amphetamines Screen Positive ng/mL (Qnawlo=2036) H 02/01/19 17:23 U Benzodiazepines Scrn Negative ng/mL (Eybtww=209) 02/01/19 17:23 Negative ng/mL (Cutoff= 300) 02/01/19 17:23 U Marijuana (THC) Screen Negative ng/mL (Cutoff = 50) 02/01/19 17:23 Ur Drug Screen Interp See Below 02/01/19 17:23 Ethyl Alcohol < 10 mg/dL (Less than 10) 02/02/19 11:39 Consult Discharge Plan - Plan Referrals: NONE,PCP [Primary Care Provider] -
--- NOTE | 2019-02-03 11:39 | Internal Med Progress Note ---
Hospitalist Progress Note - Encounter Date of Encounter: 02/03/19 Time of Encounter: 11:39 - Subjective Interval History: Was seen and examined at bedside. Asked the patient if he had spoken to psychiatry today-he stated no-I needed psychiatry had been into see the patient because I saw her entered the room. I again described the psychiatrist to the patient and asked if he had seen her-even said "I saw her but she had no credentials on the wall" informed patient he has not left the room and there are no credentials and his room. He says"I supposed to see psychiatry as outpatient-Galen ARMENDARIZ" I asked the patient if he has been experiencing any suic idal ideations or auditory hallucinations patient states he hears voices telling him "I have a piece initiated and need to kill myself" he admits to visual hallucinations states "I see my mom and I know she is not here but she appears in my room" patient then becomes very emotional and begins to cry and begins yell "what are we going to do about this"when questioned what he means he states"all of this and he points to himself and is shaking and his face is red" advised patient I will give him some medication to help calm him and we will have psychiatry follow up with him. Patient verbalized an understanding continue suicide obs with 1:1 sitter. Discussed the above conversation with psychiatry who originally had signed off agrees with continued sitter and will reexamine patient in the a.m. - Exam Vitals: Temp Pulse Resp BP Pulse Ox 97.7 F 61 18 152/89 96 02/03/19 10:19 02/03/19 10:19 02/03/19 10:19 02/03/19 10:19 02/03/19 10:19 Exam: Gen. well-developed appears tearful and frightened Skin: Free of rash and discoloration. Eyes: Sclera is white. There is no discharge from eyes. ENMT: Oral/pharyngeal mucosa is normal in appearance. There is no discharge from nose or ears. Respiratory: Normal breath sounds with no crackles and wheezes bilaterally. CV: Heart is regular with no gallop or murmur. GI: Abdomen is flat and soft with no palpable mass or visceromegaly. : There is no tenderness in patient's flanks bilaterally. Neuro exam: He has good strength in upper and lower extremities. He has normal eye movements. Psychiatric: He has normal affect. His thought process is appropriate to the situation. - Assessment and Plan (1) Suicidal ideation Current Visit: Yes Status: Acute Assessment and Plan: Past past psychiatric history he is homeless and has been abusing alcohol and drugs and experiencing suicidal ideations reporting that he wants to hang himself with a rope. He drinks alcohol daily and his last drink was 11 AM yesterday he also does crystal meth which she states was approximately day and a half ago. He states that he feels scared and at times he does hear voices telling him to harm himself. Continue with suicide observation 1:1 Patient will be evaluated by psychiatry-psychiatry consult and appreciate recommendations Social service consult for discharge planning 02/03 Patient continues to express suicidal ideations we will continue with 1:1 observation as well as continued suicide obs. Psychiatry has been consulted-patient may require 1A placement Social service consult for discharge planning (2) Substance abuse Current Visit: Yes Status: Acute Assessment and Plan: Patient states he have a history of opioid abuse and has been using crystal meth last used proximally a day and a half ago prior to presentation Monitor for withdrawal patient would like to pursue drug and alcohol rehabilitation (3) Hepatitis C Current Visit: No Status: Chronic Assessment and Plan: Per patient history hepatic panel is stable - Time Spent with Patient Total time spent is greater than 50% in coordination of care (as documented) at patient's floor/unit and/or counseling patient: Internal Medicine: Result - Labs CBC & Chem 7: 02/01/19 17:47 02/03/19 07:56 Labs: BMP 02/03/19 07:56 Sodium 138 Potassium 4.0 Chloride 104 Carbon Dioxide 26 BUN 10 Creatinine 0.72 Glucose 100 Calcium 9.0 - ABG Interpretation ABG results: PT/INR, D-dimer PT 11.1 Seconds (9.4-12.1) 02/02/19 06:28 Consult Discharge Plan - Plan Referrals: NONE,PCP [Primary Care Provider] - (3) Hepatitis C Qualifiers: Viral hepatitis chronicity: unspecified Hepatic coma status: without hepatic coma Qualified Code(s): B19.20 - Unspecified viral hepatitis C without hepatic coma
[2019-02-03] MEDS: traZODone 50 MG TABLET PO SCH (21:56)
[2019-02-03] MEDS: Nicotine 14 MG PATCH.TD24 TD SCH (21:56)
[2019-02-04] MEDS: *HR* LORazepam 2 MG/ML VIAL IVP PRN ×6 (00:56→17:56)
[2019-02-04] MEDS: *HR* Heparin 5,000 UNIT/ML VIAL SQ SCH ×2 (05:16→17:55)
[2019-02-04 06:25] LABS: Basophils % 0.5 %; Eosinophils # 0.4 K/mcL (0.0-0.6); Eosinophils % 5.8 %; Hematocrit 42.4 % (37.5-50.1); Hemoglobin 14.1 g/dL (12.9-16.9); Immature Granulocytes % 0.3 % (0-4); Lymphocytes # 2.6 K/mcL (0.6-4.6); Lymphocytes % 42.4 %; Mean Corpuscular HGB Conc 33.3 g/dL (31.6-35.5); Mean Corpuscular Hemoglobin 29.2 pg (28.0-33.3); Mean Corpuscular Volume 87.8 fL (83.0-100.0); Mean Platelet Volume 8.8 fL (9.4-12.4); Monocytes # 0.4 K/mcL (0.0-1.3); Monocytes % 5.8 %; Neutrophils # 2.8 K/mcL (1.6-8.9); Platelet Count 157 K/mcL (140-400); Red Blood Count 4.83 M/mcL (4.19-5.50); Red Cell Distribution Width 14.2 % (11.5-14.5); Segmented Neutrophils % 45.2 %; White Blood Count 6.2 K/mcL (4.3-11.1)
[2019-02-04 06:43] LABS: BUN/Creatinine Ratio 17 (6-26); Blood Urea Nitrogen 13 mg/dL (6-20); Calcium 9.6 mg/dL (8.6-10.3); Carbon Dioxide 26 mEq/L (23-29); Chloride 102 mEq/L (98-107); Glucose 114 mg/dL (70-105); Osmolality,Calculated 281 (280-300); Potassium 4.1 mEq/L (3.5-5.1); Sodium 135 mEq/L (136-145); eGFR For African Americans > 60 (> 60); eGFR For Non-African Americans > 60 (> 60)
[2019-02-04] MEDS: *HR* Promethazine 25 MG/ML VIAL IVP PRN ×2 (09:59→16:09)
[2019-02-04] MEDS: Thiamine (B-1) 100 MG TABLET PO SCH (11:10)
[2019-02-04] MEDS: Folic Acid 1 MG TABLET PO SCH (11:10)
[2019-02-04] MEDS: cloNIDine HCl 0.1 MG TABLET PO SCH ×3 (11:10→22:43)
[2019-02-04] MEDS: Vitamin B Complex/Vit C/Vit E 1 EACH TABLET PO SCH (11:10)
--- NOTE | 2019-02-04 11:27 | Psychiatry Progress Note ---
Date of Encounter: 02/04/19 Time of Encounter: 11:00 Subjective Interval history: Followed up with patient today after he told staff yesterday he was having ongoing suicidal thoughts. This morning he once again did not mention suicidal thoughts to me however he was very focused on his anxiety. He said only clonazepam and Xanax have been helpful to him in the past and wanted to know where he could go to get back on these. He said [facility] gave him a week's supply of this before but now they will not give it to him again because he has been in and out of medical facilities. He still is minimizing the role of alcohol. He does state that he was previously on Zyprexa 5 twice a day which was more helpful in the Seroquel he is taking now. He was also open to getting back on the Effexor as SSRIs and S and R eyes are first line choice for anxiety disorders. Review of Systems Psychiatric: Reports: depression, anxiety. Denies: suicidal ideation, homicidal ideation, auditory hallucinations, visual hallucinations Results - Vital Signs Vital Signs: Temp Pulse Resp BP Pulse Ox 97.9 F 72 19 165/99 98 02/04/19 11:04 02/04/19 11:04 02/04/19 11:04 02/04/19 11:04 02/04/19 11:04 - Labs Labs: Laboratory Results - last 24 hr 02/04/19 02/04/19 05:04 05:04 WBC 6.2 RBC 4.83 Hgb 14.1 Hct 42.4 MCV 87.8 MCH 29.2 MCHC 33.3 RDW 14.2 Plt Count 157 MPV 8.8 L Immature Gran % 0.3 Seg Neutrophils % 45.2 Lymphocytes % 42.4 Monocytes % 5.8 Eosinophils % 5.8 Basophils % 0.5 Neutrophils # 2.8 Lymphocytes # 2.6 Monocytes # 0.4 Eosinophils # 0.4 Basophils # 0.0 Sodium 135 L Potassium 4.1 Chloride 102 Carbon Dioxide 26 BUN 13 Creatinine 0.77 Est GFR ( Amer) > 60 Est GFR (Non-Af Amer) > 60 BUN/Creatinine Ratio 17 Glucose 114 H Calculated Osmolality 281 Calcium 9.6 Assessment and Plan (1) Alcohol abuse Current visit: Yes Status: Acute Plan: Continue hospitalization, Close observation, Suicide Precautions per unit protocol, Encourage participation in unit milieu, Group Therapy, Monitor sleep, Monitor appetite Additional Plan: I restarted his Effexor 75 mg by mouth every morning. I change Seroquel to Zyprexa 5 mg by mouth twice a day both of these for his mood stability. When necessary Vistaril for further anxiety effect. At this point he does not endorse suicidal thoughts and is future oriented particular towards getting housing. I would however keep him on the sitter until discharge at this point given that there is a manipulative quality and he may act out if the sitter is removed. He has been accepted at the [facility]. This would be the first choice optimal recommendation for him as it is a long-term substance use facility which also integrates behavioral health services. If he is not willing to do this he can be referred to outpatient counseling. If at some point he again endorses suicidality with intent and plan and will not contract for safety he may need to go to an inpatient dual diagnosis unit such as what they have at [facility], [facility] psychiatry, and [facility]. Risks, benefits, side effects, alternatives discussed w/pt: Yes Patient agreeable to treatment: Yes Consult Discharge Plan - Plan Referrals: NONE,PCP [Primary Care Provider] - Psychiatry Exam - Constitutional Vitals: Temp Pulse Resp BP Pulse Ox 97.9 F 72 19 165/99 98 02/04/19 11:04 02/04/19 11:04 02/04/19 11:04 02/04/19 11:04 02/04/19 11:04 General appearance: age & developmentally appropriate - Musculoskeletal Gait: normal Station: relaxed Strength & Tone: normal for patient - Psychiatric Patient Orientation: Yes Person, Yes Time, Yes Place, Yes Circumstance Level of alertness: Alert Behavior: anxious Psychomotor activity: Increased (Balling up his fists) Eye Contact: Maintains Eye Contact Mood Description: Anxious Patient description of mood: Anxious Affect description: congruent with mood Speech Volume: Normal Speech pattern: normal rate Language & Vocabulary: consistent with education Thought Process: Intact Thought Content: No Suicidal ideation, No Homicidal ideation Perceptual Disturbances: No Auditory hallucinations, No Visual hallucinations Attention Span Ability: Capable of Focused Attention Memory Description: Grossly Intact Patient Reliability: Reliable Historian Fund of knowledge: Yes abstraction ability, Yes aware of current events Intelligence Estimate: Average Judgment: Fair Insight: Partial
[2019-02-04] MEDS: Venlafaxine XR (24 HR) 75 MG CAP.ER.24H PO SCH (12:28)
[2019-02-04] MEDS: hydrOXYzine pamoate 25 MG CAPSULE PO PRN (12:28)
--- NOTE | 2019-02-04 16:04 | Internal Med Progress Note ---
Hospitalist Progress Note - Encounter Date of Encounter: 02/04/19 Time of Encounter: 10:00 - Subjective Interval History: Recent was seen and examined at bedside currently he is sitting at the side of the bed he appears anxious as well as been experiencing nausea and vomiting states " I feel really bad today" - he appears flushed and diaphoretic-he is b een scoring approximately 7-13 on his CIWA-patient makes the comment that he needs help and that he needs something for his anxiety. Advised patient that he will continue to receive the Ativan as scheduled with the CIWA protocol and I would also add some Librium. He states " I have still been thinking about the rope-and I want to stab myself in the neck" -informed him that he will be seen by psychiatry and they can adjust medications as needed-he denies any visual hallucinations today. Continue with one-to-one observation. I did discuss this with Dr. Gillette with psychiatry-I do feel that his behavior is manipulative and attempts to obtain medications. However if he continues to voice suicidal thoughts and continues to withdraw psychiatry recommending inpatient dual diagnosis unit- [facility], [facility] psychiatry, and [facility] - Exam Vitals: Temp Pulse Resp BP Pulse Ox 97.9 F 72 19 165/99 98 02/04/19 11:04 02/04/19 11:04 02/04/19 11:04 02/04/19 11:04 02/04/19 11:04 Exam: Gen. Patient appears flushed and diaphoretic and anxious Skin: Free of rash and discoloration. Eyes: Sclera is white. There is no discharge from eyes. ENMT: Oral/pharyngeal mucosa is normal in appearance. There is no discharge from nose or ears. Respiratory: Normal breath sounds with no crackles and wheezes bilaterally. CV: Heart is regular with no gallop or murmur. GI: Abdomen is flat and soft with no palpable mass or visceromegaly. : There is no tenderness in patient's flanks bilaterally. Neuro exam: He has good strength in upper and lower extremities. He has normal eye movements. Psychiatric: He has normal affect. His thought process is appropriate to the situation. - Assessment and Plan (1) Suicidal ideation Current Visit: Yes Status: Acute Assessment and Plan: Past past psychiatric history he is homeless and has been abusing alcohol and drugs and experiencing suicidal ideations reporting that he wants to hang himself with a rope. He drinks alcohol daily and his last drink was 11 AM yesterday he also does crystal meth which she states was approximately day and a half ago. He states that he feels scared and at times he does hear voices telling him to harm himself. Continue with suicide observation 1:1 Patient will be evaluated by psychiatry-psychiatry consult and appreciate recommendations Social service consult for discharge planning 02/03 Patient continues to express suicidal ideations we will continue with 1:1 observation as well as continued suicide obs. Psychiatry has been consulted-patient may require 1A placement Social service consult for discharge planning 02/04 Patient continues to express suicidal ideations-today he states that he wants to stop himself in the neck-and "I keep thinking about the rope" Psych recommends " If at some point he again endorses suicidality with intent and plan and will not contract for safety he may need to go to an inpatient dual diagnosis unit such as what they have at [facility], [facility] for psychiatry, and [facility]." Continue suicide observation and one on one observation (2) Substance abuse Current Visit: Yes Status: Acute Assessment and Plan: Patient states he have a history of opioid abuse and has been using crystal meth last used proximally a day and a half ago prior to presentation Monitor for withdrawal patient would like to pursue drug and alcohol rehabilitation 02/04 Patient is an active withdrawal CIWA scores 7-13 continue with Ativan we will add Librium Attempting pursue drug and alcohol rehabilitation placement- (3) Hepatitis C Current Visit: No Status: Chronic Assessment and Plan: Per patient history hepatic panel is stable - Time Spent with Patient Total time spent is greater than 50% in coordination of care (as documented) at patient's floor/unit and/or counseling patient: Internal Medicine: Result - Labs CBC & Chem 7: 02/04/19 05:04 02/04/19 05:04 Labs: Short CBC 02/04/19 Range/Units 05:04 WBC 6.2 (4.3-11.1) K/mcL Hgb 14.1 (12.9-16.9) g/dL Hct 42.4 (37.5-50.1) % Plt Count 157 (140-400) K/mcL Neutrophils # 2.8 (1.6-8.9) K/mcL BMP 02/04/19 05:04 Sodium 135 L Potassium 4.1 Chloride 102 Carbon Dioxide 26 BUN 13 Creatinine 0.77 Glucose 114 H Calcium 9.6 - ABG Interpretation ABG results: PT/INR, D-dimer PT 11.1 Seconds (9.4-12.1) 02/02/19 06:28 Consult Discharge Plan - Plan Referrals: NONE,PCP [Primary Care Provider] - (3) Hepatitis C Qualifiers: Viral hepatitis chronicity: unspecified Hepatic coma status: without hepatic coma Qualified Code(s): B19.20 - Unspecified viral hepatitis C without hepatic coma
[2019-02-04] MEDS: OLANZapine 5 MG TAB.RAPDIS PO SCH (22:43)
[2019-02-04] MEDS: traZODone 50 MG TABLET PO SCH (22:43)
[2019-02-04] MEDS: Nicotine 14 MG PATCH.TD24 TD SCH (22:44)
[2019-02-05] MEDS: *HR* Promethazine 25 MG/ML VIAL IVP PRN (03:55)
[2019-02-05] MEDS: *HR* LORazepam 2 MG/ML VIAL IVP PRN (03:56)
[2019-02-05] MEDS: *HR* Heparin 5,000 UNIT/ML VIAL SQ SCH (05:08)
[2019-02-05] MEDS: cloNIDine HCl 0.1 MG TABLET PO SCH (09:40)
[2019-02-05] MEDS: Folic Acid 1 MG TABLET PO SCH (09:40)
[2019-02-05] MEDS: Vitamin B Complex/Vit C/Vit E 1 EACH TABLET PO SCH (09:40)
[2019-02-05] MEDS: Venlafaxine XR (24 HR) 75 MG CAP.ER.24H PO SCH (09:40)
[2019-02-05] MEDS: OLANZapine 5 MG TAB.RAPDIS PO SCH (09:40)
[2019-02-05] MEDS: Thiamine (B-1) 100 MG TABLET PO SCH (09:40)
[2019-02-05] MEDS: hydrOXYzine pamoate 25 MG CAPSULE PO PRN (09:41)
--- NOTE | 2019-02-05 11:01 | Psychiatry Progress Note ---
Date of Encounter: 02/05/19 Time of Encounter: 10:00 Subjective Interval history: Patient is no longer scoring on see well but continues to want Ativan. He has been very upset talking to family on the phone to the point where nursing staff had to take his cell phone from him because it was further exacerbating his anxiety. He continues to report depression and feeling overwhelmed. Review of Systems Psychiatric: Reports: depression, anxiety, suicidal ideation. Denies: homicidal ideation, auditory hallucinations, visual hallucinations Results - Vital Signs Vital Signs: Temp Pulse Resp BP Pulse Ox 97.5 F L 60 18 157/98 98 02/05/19 08:16 02/05/19 08:16 02/05/19 08:16 02/05/19 08:16 02/05/19 08:16 Assessment and Plan (1) Alcohol abuse Current visit: Yes Status: Acute Additional Plan: At this point given his continued difficulty with maintaining stable mood I would recommend inpatient dual diagnosis programming. [facility] for psychiatry and for her [place] would be first choices given his insurance. Other alternatives are [facility], [facility], or [facility]. If he is willing to contract for safety and prefers to be released to the community or to the bed waiting at the [facility] for longer term alcohol rehabilitation this is also an option. If he will not contract for safety and no dual diagnosis bed can be found please work with 1A staff to complete probate Risks, benefits, side effects, alternatives discussed w/pt: Yes Patient agreeable to treatment: Yes Consult Discharge Plan - Plan Referrals: NONE,PCP [Primary Care Provider] - Psychiatry Exam - Constitutional Vitals: Temp Pulse Resp BP Pulse Ox 97.5 F L 60 18 157/98 98 02/05/19 08:16 02/05/19 08:16 02/05/19 08:16 02/05/19 08:16 02/05/19 08:16 General appearance: disheveled - Musculoskeletal Gait: other (In bed) Station: relaxed Strength & Tone: normal for patient - Psychiatric Patient Orientation: Yes Person, Yes Time, Yes Place, Yes Circumstance Level of alertness: Alert Behavior: agitated Psychomotor activity: Increased Eye Contact: Maintains Eye Contact Mood Description: Irritable Patient description of mood: "I pissed" Affect description: anxious Speech Volume: Loud Speech pattern: normal rate Language & Vocabulary: consistent with education Thought Process: Goal Oriented Thought Content: Yes Suicidal ideation (He is vague about this. He told nursing staff that he was thinking about it.) Perceptual Disturbances: Yes Auditory hallucinations (He reports hallucinations but does not appear to be responding to internal stimuli), Yes Visual hallucinations Attention Span Ability: Capable of Focused Attention Memory Description: Grossly Intact Patient Reliability: Questionable Historian Fund of knowledge: Yes average Intelligence Estimate: Average Judgment: Poor Insight: Partial
[2019-02-05 12:26] VITALS: BP 123/80
--- NOTE | 2019-02-05 13:03 | Physician Discharge Referral ---
ExtendedCare Referral Info Provider in Charge after Transfer: Other Institutional Level of Care: Intermediate - Diagnosis (1) Suicidal ideation Priority: Primary Status: Acute (2) Alcohol intoxication Priority: Primary Status: Acute (3) Alcohol abuse Priority: Primary Status: Acute (4) Substance abuse Priority: Primary Status: Acute (5) Hepatitis C Priority: Secondary Status: Chronic Prognosis: Fair Aware of Diagnosis: Patient Aware of Prognosis: Patient - Transfer Medications Prescriptions: cloNIDine HCl [CloNIDine HCl] 0.1 mg PO BID #30 tablet Docusate [Colace] 100 mg PO BID #30 capsule Folic Acid 1 mg PO DAILY #30 tablet Nicotine Patch [Nicoderm] 14 mg TD Q24H #30 patch.td24 HYDROcodone/Acet 5/325 mg [[place] 5-325 mg] 1 tab PO Q6H PRN 2 Days #8 tablet PRN Reason: Pain Vitamin B Complex/Vit C/Vit E [Stresstab] 1 each PO DAILY #30 tablet Trazodone HCl 100 mg PO HS 3 Days #3 tablet Thiamine (B-1) [Vitamin B-1] 100 mg PO DAILY #30 tablet OLANZapine [Zyprexa Zydis] 5 mg PO TID #90 tab.rapdis Home Medications: Venlafaxine HCl [Venlafaxine HCl ER] 75 mg PO QAM 02/02/19 [History] hydrOXYzine pamoate [HydrOXYzine Pamoate] 50 mg PO TID PRN 02/02/19 [History] Docusate [Colace] 100 mg PO BID #30 capsule 02/05/19 [Rx] Folic Acid 1 mg PO DAILY #30 tablet 02/05/19 [Rx] HYDROcodone/Acet 5/325 mg [[place] 5-325 mg] 1 tab PO Q6H PRN 2 Days #8 tablet 02/05/19 [Rx] Nicotine Patch [Nicoderm] 14 mg TD Q24H #30 patch.td24 02/05/19 [Rx] OLANZapine [Zyprexa Zydis] 5 mg PO TID #90 tab.rapdis 02/05/19 [Rx] Thiamine (B-1) [Vitamin B-1] 100 mg PO DAILY #30 tablet 02/05/19 [Rx] Trazodone HCl 100 mg PO HS 3 Days #3 tablet 02/05/19 [Rx] Vitamin B Complex/Vit C/Vit E [Stresstab] 1 each PO DAILY #30 tablet 02/05/19 [Rx] cloNIDine HCl [CloNIDine HCl] 0.1 mg PO BID #30 tablet 02/05/19 [Rx] Allergies/Adverse Reactions: Allergy/AdvReac Type Severity Reaction Status Date / Time codeine Allergy Difficulty Verified 02/02/19 19:27 Breathing - Respiratory Orders Smoking Cessation: Smoking cessation has been advised. For more information, call the [place] Tobacco Quit Line at 3-619-OQTU-NOW. - Advance Directives Code Status: Full Code CERTIFICATION: I certify that the transfer of the above named patient to an Extended Care Facility is necessary for the continuing treatment of the diagnosis listed. The above information is true and accurate reflection of patient's current condition. Confidential - Redisclosure prohibited without a patient's written consent.
--- NOTE | 2019-02-05 13:06 | Discharge Summary ---
- NOTES TO OUTPATIENT PROVIDER Notes to Outpatient Provider: f/u with psychiatry within 2 weeks. F/u with PCP within 4 weeks. Date of Encounter: 02/05/19 Time of Encounter: 13:04 - Discharge Diagnosis (1) Suicidal ideation Priority: Primary Status: Acute (2) Alcohol intoxication Priority: Primary Status: Acute Qualifiers: Complication of substance-induced condition: with unspecified complication Qualified Code(s): F10.929 - Alcohol use, unspecified with intoxication, unsp ecified (3) Alcohol abuse Priority: Primary Status: Acute (4) Substance abuse Priority: Primary Status: Acute (5) Hepatitis C Priority: Secondary Status: Chronic Qualifiers: Viral hepatitis chronicity: unspecified Hepatic coma status: without hepatic coma Qualified Code(s): B19.20 - Unspecified viral hepatitis C without hepatic coma Hospital course: Nasim Quinones is a 53 year old man with hypertension, depression, alcohol dependence and substance use disorder who has had psychiatric issues in the past presenting with suicidal ideation. While he admits to having had this issue in the past requiring admission, he says it occurred acutely today after an episode of drinking and reportedly obtaining a length of rope to hang himself with. He admits to daily alcohol use, last rink at 11am this morning. He also admits to using crystal meth. He is hearing voices telling him to harm himself and feels scared. He denies other complaints. He was evaluated in the ER and although hemodynamically stable was seen to have an elevated alcohol level and amphetamines in urine therefore was not cleared medically giving the intoxicated state and risk of withdrawal to occur in the psych unit. He will be admitted for observation. He says he is from [place] and he does not know how he came here. Drug screen was positive for methamphetamine and ETOH. He was placed on CIWA. Psychiatry was consulted. Patient was pink slipped due to suicidal ideation. After 3 days of treatment, his etoh withdrawal symptoms have improved. He will be transferred to inpatient drug abuse facility to further manage poly-substance abuse issue. Discharge discussed with: patient Time spent discussing smoking cessation with patient: more than 10 minutes - Time Spent with Patient Total time spent providing and/or coordinating discharge services: Time spent: Greater than 30 minutes - Discharge Medications Prescriptions: New cloNIDine HCl [CloNIDine HCl] 0.1 mg PO BID #30 tablet Docusate [Colace] 100 mg PO BID #30 capsule Folic Acid 1 mg PO DAILY #30 tablet Nicotine Patch [Nicoderm] 14 mg TD Q24H #30 patch.td24 Vitamin B Complex/Vit C/Vit E [Stresstab] 1 each PO DAILY #30 tablet Thiamine (B-1) [Vitamin B-1] 100 mg PO DAILY #30 tablet OLANZapine [Zyprexa Zydis] 5 mg PO TID #90 tab.rapdis Continued hydrOXYzine pamoate [HydrOXYzine Pamoate] 50 mg PO TID PRN PRN Reason: Anxiety Venlafaxine HCl [Venlafaxine HCl ER] 75 mg PO QAM HYDROcodone/Acet 5/325 mg [[place] 5-325 mg] 1 tab PO Q6H PRN 2 Days #8 tablet PRN Reason: Pain Trazodone HCl 100 mg PO HS 3 Days #3 tablet Discontinued Quetiapine Fumarate [Seroquel] 50 mg PO HS clonazePAM [Clonazepam] 1 mg PO TID PRN PRN Reason: Anxiety Home Medications: Venlafaxine HCl [Venlafaxine HCl ER] 75 mg PO QAM 02/02/19 [History] hydrOXYzine pamoate [HydrOXYzine Pamoate] 50 mg PO TID PRN 02/02/19 [History] Docusate [Colace] 100 mg PO BID #30 capsule 02/05/19 [Rx] Folic Acid 1 mg PO DAILY #30 tablet 02/05/19 [Rx] HYDROcodone/Acet 5/325 mg [[place] 5-325 mg] 1 tab PO Q6H PRN 2 Days #8 tablet 02/05/19 [Rx] Nicotine Patch [Nicoderm] 14 mg TD Q24H #30 patch.td24 02/05/19 [Rx] OLANZapine [Zyprexa Zydis] 5 mg PO TID #90 tab.rapdis 02/05/19 [Rx] Thiamine (B-1) [Vitamin B-1] 100 mg PO DAILY #30 tablet 02/05/19 [Rx] Trazodone HCl 100 mg PO HS 3 Days #3 tablet 02/05/19 [Rx] Vitamin B Complex/Vit C/Vit E [Stresstab] 1 each PO DAILY #30 tablet 02/05/19 [Rx] cloNIDine HCl [CloNIDine HCl] 0.1 mg PO BID #30 tablet 02/05/19 [Rx] Allergies/Adverse Reactions: Allergy/AdvReac Type Severity Reaction Status Date / Time codeine Allergy Difficulty Verified 02/02/19 19:27 Breathing Date of admission: 02/03/19 22:42 Primary care physician: PCP NONE Consults: 02/02/19 13:02 Consult to Psychiatry [CONS] Routine Consulting Provider: [facility] Reason consult: Other Other reason and/or additional details: SI 02/03/19 13:12 Consult to [facility] [CONS] Routine Reason for SW Consult: [facility] REH[facility]ACEMENT, HOMELESS Anticipated date of discharge: 02/05/19 - Constitutional Vitals: Temp Pulse Resp BP Pulse Ox 97.6 F 68 18 123/80 97 02/05/19 12:25 02/05/19 12:25 02/05/19 12:25 02/05/19 12:25 02/05/19 12:25 General appearance: Present: A&O X 3 Exam: Gen. Patient appears flushed and diaphoretic and anxious Skin: Free of rash and discoloration. Eyes: Sclera is white. There is no discharge from eyes. ENMT: Oral/pharyngeal mucosa is normal in appearance. There is no discharge from nose or ears. Respiratory: Normal breath sounds with no crackles and wheezes bilaterally. CV: Heart is regular with no gallop or murmur. GI: Abdomen is flat and soft with no palpable mass or visceromegaly. : There is no tenderness in patient's flanks bilaterally. Neuro exam: He has good strength in upper and lower extremities. He has normal eye movements. Psychiatric: He has normal affect. His thought process is appropriate to the situation. - Patient Status Disposition: Transfer Psychiatric Hosp Condition: Fair Functional capacity at discharge: independent ambulation Overall status at discharge: patient is progressing back to baseline - Discharge Instructions Follow Up With: NONE,PCP [Primary Care Provider] - - Diet and Activity Activity: increase activity as tolerated Diet: advance to your usual diet
[2019-02-05] MEDS ORDERED: *HR* LORazepam 1 MG TABLET PO ONE (14:12)
[2019-02-05] MEDS ORDERED: hydrOXYzine pamoate 25 MG CAPSULE PO SCH (15:00)
[2019-02-05] MEDS ORDERED: OLANZapine 5 MG TAB.RAPDIS PO SCH (15:00)
== END 2019-02-05 15:30 | DRG 775 ==
LOC: EMEROOARM 17:06 → 3BNU 17:06
PROVIDERS: ADMIT Internal Medicine; ATTEND Internal Medicine